=== PATIENT | female | born 1955 | race African-American/Black ===

== ENCOUNTER → 2016-11-01 | Outpatient (CLI) | payer BC, OTHER ==
--- NOTE | 2016-11-01 10:53 | RAD ---
DATE: 11/01/2016 EXAM: MAMMO [place] SCREENING BILATERAL HISTORY: Routine screening COMPARISON: 02/05/2011 The breast parenchyma shows scattered fibroglandular densities. Breast parenchyma level B. FINDINGS: 2-D and 3-D tomosynthesis imaging was performed in CC and MLO projections. There are small smooth nodules in the lateral aspects of both breasts which appear to have been present on the older study. These are probably intramammary lymph nodes. No new or enlarging breast densities are seen. No suspicious microcalcifications are evident. Benign-appearing lymph node type densities are present in both axillary regions. IMPRESSION: Stable mammograms without evidence of malignancy. BI-RADS CATEGORY: 2 BENIGN FINDING(S) RECOMMENDED FOLLOW-UP: 12M 12 MONTH FOLLOW-UP PQRS compliance statement: Patient information was entered into a reminder system with a target due date for the next mammogram. Mammography is a sensitive method for finding small breast cancers, but it does not detect them all and is not a substitute for careful clinical examination. A negative mammogram does not negate a clinically suspicious finding and should not result in delay in biopsying a clinically suspicious abnormality. "Our facility is accredited by the [employer] Mammography [employer]."
== END | disposition home or self-care (01) ==
LOC: KCIC MAMMO 09:51
PROVIDERS: ATTEND Family Medicine
DX: Z12.31 Encounter for screening mammogram for malignant neoplasm of breast (principal)
CPT/HCPCS: 77063; G0202; 77067

== ENCOUNTER → 2016-12-06 | Outpatient (CLI) | payer OTHER ==
--- NOTE | 2016-12-06 11:01 | KCIC ---
Examination: MRI of the left elbow without contrast HISTORY: History of swelling in the left elbow for 5 to 6 months. COMPARISON: None available. TECHNIQUE: Multiplanar, multisequence MR imaging of the left elbow was performed without contrast FINDINGS: The attachment of the triceps tendon to the olecranon process grossly appears intact. There is mild increased T2 signal identified in the soft tissue about distal attachment of the triceps tendon. A small amount of fluid identified superficial to the triceps tendon attachment to the olecranon process could be bursal fluid. The attachment of the common extensor tendon, common flexor tendon grossly appears intact. The visualized ulnar collateral ligament, radial collateral ligament, lateral ulnar collateral ligament grossly appears intact. Minimal elbow joint effusion identified. The visualized ulnar nerve within the cubital grossly appears unremarkable. The distal attachment of the biceps tendon and brachialis tendon grossly appears intact. IMPRESSION: 1. Mild increased T2 signal identified about the distal aspect of the distal triceps tendon at its attachment to the olecranon process likely tendinosis with minimal amount of fluid identified superficial to the triceps tendon distally could be mild bursitis. 2. The attachment of the common extensor, common flexor tendon grossly appears intact. Electronically signed by: Poli Islas MD (12/06/2016 10:57 AM) [facility]
== END | disposition home or self-care (01) ==
LOC: KCIC MRI 09:49
PROVIDERS: ATTEND Family Medicine
DX: M77.12 Lateral epicondylitis, left elbow (principal); M25.422 Effusion, left elbow
CPT/HCPCS: 73221

== ENCOUNTER → 2018-02-28 | Outpatient (CLI) | payer OTHER ==
--- NOTE | 2018-02-28 16:07 | KCIC ---
Bilateral digital screening mammograms with 3-D tomosynthesis: Reason for examination: Routine screening. Comparison is made to previous study dated 11/01/2016. Bilateral mammograms in CC and oblique projections were obtained with 2-D imaging and 3-D tomosynthesis imaging on a Siemens Inspiration unit and reviewed on the workstation. Interpretation was made with the benefit of CAD. The skin and nipples show no abnormalities. No abnormal axillary lymph nodes are seen. The breast parenchyma shows scattered fatty and fibroglandular density. (Breast density: Category B.) There continue to be nodules consistent with intramammary lymph nodes bilaterally. There are no new dominant masses, suspicious calcifications or architectural distortion. Impression: No evidence of malignancy. Recommend routine screening. BI-RAD Category 2: Benign. "Our facility is accredited by the [employer] Mammography [employer]." This patient's information has been entered into a reminder system for the patient to be notified with the results of her examination and a target date for the next mammogram. Electronically signed by: Mayela Martin MD (02/28/2018 4:03 PM) [facility]
== END | disposition home or self-care (01) ==
LOC: KCIC MAMMO 11:17
PROVIDERS: ATTEND Family Medicine
DX: Z12.31 Encounter for screening mammogram for malignant neoplasm of breast (principal)
CPT/HCPCS: 77063; 77067

== ENCOUNTER → 2019-12-02 | Outpatient (CLI) | payer MEDICARE, OTHER ==
--- NOTE | 2019-12-02 12:23 | KCIC ---
EXAM: Bilateral digital screening mammogram with tomosynthesis. HISTORY: 64-year-old female presents for screening mammography. TECHNIQUE: Full-field digital craniocaudal and mediolateral oblique 2D and 3D tomosynthesis images of both breasts are obtained for evaluation. Computer aided detection with BoardVantageD software version 9.3 was applied. COMPARISON: 02/28/2018 BREAST PARENCHYMAL DENSITY: Level B - Scattered fibroglandular densities. FINDINGS: There is no new suspicious mass, microcalcification or region of architectural distortion. There are scattered benign nodular densities throughout both breasts, the multiplicity and configuration of which favors multiple cysts and benign fibrocystic lesions. IMPRESSION: BI-RADS Category 2: Benign finding(s). RECOMMENDATION: Annual mammography is recommended. If your mammogram demonstrates that you have dense breast tissue, which could hide abnormalities, and if you have other risk factors for breast cancer that have been identified, you might benefit from supplemental screening tests that may be suggested by your ordering physician. Dense breast tissue, in and of itself, is a relatively common condition. This information is not provided to cause undue concern, but rather to raise your awareness and to promote discussion with your physician regarding the presence of other risk factors, in addition to dense breast tissue. A report of your mammography results will be sent to you and your physician. You should contact your physician if you have any questions or concerns regarding this report. Mammography is a sensitive method for finding small breast cancers, but it does not detect them all and is not a substitute for careful clinical examination. A negative mammogram does not negate a clinically suspicious finding and should not result in delay in biopsying a clinically suspicious abnormality. PQRS compliance statement - Patient information was entered into a reminder system with a target due date for the next mammogram. "Our facility is accredited by the [employer] Mammography [employer]." Electronically signed by: Carmen Zhao MD (12/02/2019 12:20 PM) [email or web address]
== END | disposition home or self-care (01) ==
LOC: KCIC MAMMO 10:50
PROVIDERS: ATTEND Family Medicine
DX: Z12.31 Encounter for screening mammogram for malignant neoplasm of breast (principal); N64.89 Other specified disorders of breast
CPT/HCPCS: 77063; 77067

== ENCOUNTER → 2019-12-25 | Outpatient (CLI) | payer SELFPAY ==
--- NOTE | 2019-12-25 11:15 | KCIC ---
EXAMINATION: CT Cardiac Score INDICATION: Reason: FAMILY HISTORY OF HEART DISEASE / Spl. Instructions: BROTHER AND FATHER PASSED FROM HEART ATTACK / History: TECHNIQUE: High resolution ECG synchronized CT of the heart with attention to the coronary arteries. Coronary calcification was analyzed using calcium scoring software. All CT scans performed at this facility utilize dose optimization techniques as appropriate to the exam, including the following: Automated exposure control and adjustment of the mA and/or KV according to patient size (this includes techniques or standardized protocols for targeted exams where dose is indication/reason for exam). COMPARISON: None FINDINGS - Limited CT Chest only: Calcified mediastinal and right hilar lymph nodes are noted. FINDINGS - Cardiac Score only: Arteries Volume (cubic mm) Calcium Score LM 83.5 93.9 LAD 193.3 210.9 CX 9.6 7.7 RCA 452.5 538.8 Total 738.9 851.3 IMPRESSION: 1. Limited non-contrast CT images demonstrate calcified mediastinal and right hilar lymph nodes but otherwise no acute cardiopulmonary process. 2. Agatston total coronary calcium score is 851.3. This is consistent with significant calcification and places the patient at greater than the 90th percentile for a person of the same age and gender. Coronary calcium scores greater than 400 are associated with very high cardiovascular event rates such as heart attack. Aggressive risk factor modification is necessary, which may include high-intensity dosing of cholesterol-lowering medications and aspirin. Electronically signed by: Nell Quijano MD (12/25/2019 11:12 AM) [id number]
== END ==
LOC: KCIC CT 10:11
PROVIDERS: ATTEND Family Medicine
DX: Z13.6 Encounter for screening for cardiovascular disorders (principal); I89.8 Other specified noninfective disorders of lymphatic vessels and lymph nodes; Z82.49 Family history of ischemic heart disease and other diseases of the circulatory system
CPT/HCPCS: 75571

== ENCOUNTER → 2020-04-18 | Outpatient (CLI) | payer MEDICARE ==
[~2020-04-18] MED LIST: REGADENOSON 0.4 MG/5 ML DISP.SYRIN. IV ONE
--- NOTE | 2020-04-18 22:34 | CARD ---
MR#: [id number] Date of Study: 04/18/2020 Ordering Physician: ROSA CARR, Referring Physician: ROSA CARR, Tech: Joan Santillan RDCS APPROVED REPORT EXAM: Two-dimensional and M-mode echocardiogram with Doppler and color Doppler. Other Information Quality : Good INDICATION Chest Pain 2D DIMENSIONS RVDd2.4 (2.9-3.5cm)Left Atrium(2D)2.9 (1.6-4.0cm) IVSd0.7 (0.7-1.1cm)Aortic Root(2D)2.8 (2.0-3.7cm) LVDd4.9 (3.9-5.9cm)LVOT Diameter2.0 (1.8-2.4cm) PWd0.7 (0.7-1.1cm)LVDs2.7 (2.5-4.0cm) FS (%) 30.0 %SV86.2 ml LVEF(%)60.0 (>50%) Aortic Valve AoV Peak Garett.143.4cm/sAoV VTI25.6cm AO Peak GR.8.2mmHgLVOT Peak Garett.127.7cm/s LVOT VTI 25.54cmAO Mean GR.4mmHg DEB (VMAX)2.61dj8HKK (VTI)3.15cm2 Mitral Valve MV E Rdxfalrn93.8cm/sMV DECEL WSGB150zl MV A Upwfccpi42.0cm/sMV KQX46fd E/A Ratio1.2MVA (PHT)4.04cm2 TDI E/Lateral E'5.2E/Medial E'10.7 Tricuspid Valve TR P. Fgidlkvi511ny/sRAP TWRFLJAP5meSk TR Peak Gr.68liJiOCRX16upPn Pulmonary Vein S1 Rdriiypf24.0cm/sD2 Cdngshdq17.4cm/s LEFT VENTRICLE The left ventricle is normal size. There is normal left ventricular wall thickness. The left ventricu lar systolic function is normal and the ejection fraction is within normal range. The Ejection Fracti on is 55-60%. There is normal LV segmental wall motion. The left ventricular diastolic function and f illing is normal for age. RIGHT VENTRICLE The right ventricle is normal size. The right ventricular systolic function is normal. ATRIA The left atrium size is normal. The right atrium size is normal. The interatrial septum is intact wit h no evidence for an atrial septal defect or patent foramen ovale as noted on 2-D or Doppler imaging. AORTIC VALVE The aortic valve is calcified but opens well. Doppler and Color Flow revealed no significant aortic r egurgitation. There is no significant aortic valvular stenosis. MITRAL VALVE The mitral valve is calcified but opens well. There is no evidence of mitral valve prolapse. There is no mitral valve stenosis. Doppler and Color-flow revealed mild mitral regurgitation. TRICUSPID VALVE The tricuspid valve is normal in structure and function. Doppler and Color Flow revealed mild tricusp id regurgitation. The PA pressure was estimated at 38 mmHg. There is no tricuspid valve stenosis. PULMONIC VALVE The pulmonic valve is not well visualized. Doppler and Color Flow revealed trace pulmonic valvular re gurgitation. There is no pulmonic valvular stenosis. GREAT VESSELS The aortic root is normal in size. The ascending aorta is not well seen. The IVC is normal in size an d collapses >50% with inspiration. PERICARDIAL EFFUSION There is no evidence of significant pericardial effusion. Critical Notification Critical Value: No <Conclusion> The left ventricular systolic function is normal and the ejection fraction is within normal range. Th e Ejection Fraction is 55-60%. There is normal LV segmental wall motion. Doppler and Color-flow revealed mild mitral regurgitation. Doppler and Color Flow revealed mild tricuspid regurgitation. The PA pressure was estimated at 38 mm Hg. Signed by : Wan Haywood, Electronically Approved : 04/18/2020 22:34:28
--- NOTE | 2020-04-18 22:36 | RAD ---
MR#: [id number] Date of Study: 04/18/2020 Ordering Physician: ROSA CARR, Referring Physician: BELLA ENGLE Tech: HEIDI Phan ARRT (R) (N) APPROVED REPORT Test Type: Pharmacological Stress Nurse/Tech: Bob Andrade RN Test Indications: Elevated Calcium Score/ Agatston CAD Cardiac History: HTN, See EMR. Medications: See EMR. Medical History: See EMR. Resting ECG: SR Resting Heart Rate: 91 bpm Resting Blood Pressure: 126/79mmHg Pretest Chest Pain: No chest pain Nurse/Tech Notes Lungs CTA, Heart tones regular. Consent: The procedure was explained to the patient in lay terms. Informed consent was witnessed. Moshe eout was entered into [employer]ee. History and Stress Test performed by RT Marija (R) (N) Pharm. Details Pharmacologic stress testing was performed using 0.4mg per 5ml of regadenoson given intravenously ove r 7-10 seconds. Stress Symptoms No chest pain or symptoms. POST EXERCISE Reason for Termination: Infusion complete Max HR: 100 bpm Max Blood Pressure: 129/67mmHg Blood Pressure response to exercise: Normal blood pressure response during stress. Heart Rate response to exercise: WNL Chest Pain: No. Arrhythmia: No. ST Change: No. INTERPRETATION Stress EKG Conclusion: No evidence of stress induced EKG changes. Imaging Protocol IMAGE PROTOCOL: Rest Tc-99m/stress Tc-99m 1 day Rest: Stress: Viability: Radiopharm.Tc99m QdrfgsieiYo38j Sestamibi Uybh28aJo 32mCi Img Date 04/18/2020 04/18/2020 Inj-Img Hyds59fep. 60min. Rest Admin Site:IV - Left AntecubitalAdministrator:HEIDI Phan ARRT (R)(N) Stress Admin Site: IV - Left AntecubitalAdministrator: RT Vinay Dutton)(N) STRESS DATA End Diast. Vol.56.0mlLVEDV index BSA32.0ml End Syst. Vol.12.0mlLVESV index BSA7.0ml Myocardial Mass95.0gEject. Qwrzcgrl30.0% Stress Scores Regional WT0.00Summed WT0.00 Regional WM0.00Summed WM1.00 The rest and stress images show normal perfusion, normal contraction and thickening. LV Perf. Quant 17 Seg. SSS0.00 17 Seg. SRS3.00 17 Seg. SDS0.00 Stress Defect Extent (% LAD)0.00Rest Defect Extent (% LAD)0.00Rev. Defect Extent (% LAD)0.00 Stress Defect Extent (% LCX) 0.00Rest Defect Extent (% LCX)5.00Rev. Defect Extent (% LCX)0.00 Stress Defect Extent (% RCA)0.00Rest Defect Extent (% RCA)0.00Rev. Defect Extent (% RCA)0.00 Stress Defect Extent (% MARSHALL)0.00Rest Defect Extent (% MARSHALL)0.90Rev. Defect Extent (% MARSHALL)0.00 Other Information Quality:Average Risk Assessment: Low Risk Conclusion 1. No evidence of EKG changes with stress testing. 2. Normal perfusion at stress/rest. 3. Low risk study. 4. EF > 60%. Signed by : Wan Haywood, Electronically Approved : 04/18/2020 22:36:31
== END ==
LOC: NM 08:11
PROVIDERS: ATTEND Internal Medicine Cardiovascular Disease
DX: I08.3 Combined rheumatic disorders of mitral, aortic and tricuspid valves (principal); R07.9 Chest pain, unspecified; R93.1 Abnormal findings on diagnostic imaging of heart and coronary circulation
CPT/HCPCS: 78452; 93017; 93306; A9500; J2785

== ENCOUNTER → 2021-01-09 | Outpatient (CLI) | payer MEDICARE ==
--- NOTE | 2021-01-09 14:28 | KCIC ---
Bilateral digital screening mammograms with 3-D tomosynthesis: Reason for examination: Routine screening. Comparison is made to previous studies dated back to 11/01/2016. Bilateral mammograms in CC and oblique projections were obtained with 2-D imaging and 3-D tomosynthes is imaging on a Siemens Inspiration unit and reviewed on the workstation. Interpretation was made wit h the benefit of CAD. The skin and nipples show no abnormalities. No abnormal axillary lymph nodes are seen. The breast par enchyma shows scattered fatty and fibroglandular density. (Breast density: Category B.) There continu e to be several small circumscribed nodules bilaterally with some representing intramammary lymph nod es and appear to be stable. There are no new dominant masses, suspicious calcifications or architectu ral distortion. Impression: No evidence of malignancy. Recommend routine screening. BI-RAD Category 2: Benign. "Our facility is accredited by the [employer] Mammography Program." This patient's information has been entered into a reminder system for the patient to be notified wit h the results of her examination and a target date for the next mammogram. Electronically signed by: Mayela Martin MD (01/09/2021 2:26 PM) [id number]
== END ==
LOC: KCIC MAMMO 09:58
PROVIDERS: ATTEND Family Medicine
DX: Z12.31 Encounter for screening mammogram for malignant neoplasm of breast (principal)
CPT/HCPCS: 77063; 77067

== ENCOUNTER → 2021-04-27 | Outpatient (CLI) | payer MEDICARE ==
--- NOTE | 2021-04-28 10:20 | CARD ---
MR#: [id number] Date of Study: 04/27/2021 Ordering Physician: ROSA CARR, Referring Physician: Gui ENGLE: Chino Hess [facility] APPROVED REPORT EXAM: Two-dimensional and M-mode echocardiogram with Doppler and color Doppler. Other Information Quality : AverageHR: 63bpm Rhythm : NSR INDICATION Hypertension/HCVD RISK FACTORS Hypertension 2D DIMENSIONS Left Atrium(2D)3.3 (1.6-4.0cm)IVSd0.8 (0.7-1.1cm) Aortic Root(2D)3.2 (2.0-3.7cm)LVDd4.4 (3.9-5.9cm) LVOT Diameter2.1 (1.8-2.4cm)PWd0.7 (0.7-1.1cm) LVDs2.3 (2.5-4.0cm)FS (%) 48.7 % SV71.0 ml Mitral Valve MV E Ilswsyid32.7cm/sMV E Peak Gr.4mmHg MV DECEL [id number] A Mlbqijnk79.1cm/s MV E Mean Gr.1mmHgE/A Ratio1.1 Pulmonary Valve PV Peak Pthaqvdj56.2cm/s Tricuspid Valve TR P. Dpsccxwk586wg/sTR Peak Gr.25mmHg Pulmonary Vein S1 Xaxgptft41.2cm/sD2 Ziypgfxa10.8cm/s LEFT VENTRICLE The left ventricle is normal size. There is normal left ventricular wall thickness. The left ventricu lar systolic function is normal and the ejection fraction is within normal range. LV ejection fractio n of 55 to 60%. There is normal LV segmental wall motion. No left ventricle thrombus noted on this st udy. There is no ventricular septal defect visualized. There is no left ventricular aneurysm. There i s no mass noted in the left ventricle. RIGHT VENTRICLE The right ventricle is normal size. There is normal right ventricular wall thickness. The right ventr icular systolic function is normal. ATRIA The left atrium size is normal. The right atrium size is normal. The interatrial septum is intact wit h no evidence for an atrial septal defect or patent foramen ovale as noted on 2-D or Doppler imaging. AORTIC VALVE The aortic valve is normal in structure and function. Doppler and Color Flow revealed no significant aortic regurgitation. There is no significant aortic valvular stenosis. There is no aortic valvular v egetation. MITRAL VALVE The mitral valve is thickened but opens well. There is no evidence of mitral valve prolapse. There is no mitral valve stenosis. Doppler and Color-flow revealed mild mitral regurgitation. TRICUSPID VALVE The tricuspid valve is normal in structure and function. Doppler and Color Flow revealed trace to mil d tricuspid regurgitation. The PA pressure was estimated at 32 mmHg. There is no tricuspid valve prol apse or vegetation. There is no tricuspid valve stenosis. PULMONIC VALVE The pulmonary valve is normal in structure and function. Trivial pulmonic regurgitation There is no p ulmonic valvular stenosis. GREAT VESSELS The aortic root is normal in size. The ascending aorta is normal in size. The pulmonary artery is nor mal. The IVC is normal in size and collapses >50% with inspiration. PERICARDIAL EFFUSION There is no pleural effusion. There is no evidence of significant pericardial effusion. Critical Notification Critical Value: No <Conclusion> The left ventricle is normal size. The left ventricular systolic function is normal and the ejection fraction is within normal range. LV ejection fraction of 55 to 60%. Doppler and Color Flow revealed no significant aortic regurgitation. There is no significant aortic valvular stenosis. Doppler and Color-flow revealed mild mitral regurgitation. Doppler and Color Flow revealed trace to mild tricuspid regurgitation. The PA pressure was estimated at 32 mmHg. Signed by : Maxime Rhodes MD Electronically Approved : 04/28/2021 10:20:03
== END ==
LOC: ECHO 10:48
PROVIDERS: ATTEND Internal Medicine Cardiovascular Disease
DX: I08.8 Other rheumatic multiple valve diseases (principal); I10 Essential (primary) hypertension
CPT/HCPCS: 93306; C8929